=== PATIENT | male | born 1980 | race Caucasian/White ===

== ENCOUNTER 2021-01-08 11:55 | Emergency (ER) | payer OTHER ==
[~2021-01-08] VITALS: Ht 180.3 cm; Wt 73.5 kg
[~2021-01-08 11:55] MED LIST: PROM25 PO; Pepcid40 MG PO; Prednisone20 MG PO; Prilosec Otc20 MG PO
[2021-01-08] MEDS ORDERED: AMOCLA875 PO (13:06)
== END 2021-01-08 13:10 | disposition home or self-care (01) ==
LOC: ER 11:55
DX: S01.511A Laceration without foreign body of lip, initial encounter (principal); F17.210 Nicotine dependence, cigarettes, uncomplicated; Z79.52 Long term (current) use of systemic steroids; Z79.899 Other long term (current) drug therapy; W22.8XXA Striking against or struck by other objects, initial encounter
CPT/HCPCS: 12011; 90471; 90714; 99283-25

== ENCOUNTER 2022-05-16 11:31 | Emergency (ER) | payer OTHER ==
[~2022-05-16] VITALS: Ht 180.3 cm; Wt 72.6 kg
[~2022-05-16 11:31] MED LIST changes: +AMOCLA875 PO
== END 2022-05-16 11:45 | disposition home or self-care (01) ==
LOC: ER 11:31
DX: B02.9 Zoster without complications (principal); F17.210 Nicotine dependence, cigarettes, uncomplicated
CPT/HCPCS: 99282